=== PATIENT | male | born 1950 | race Caucasian/White ===

== ENCOUNTER 2017-07-26 07:34 | Day surgery (SDC) | payer MEDICARE, OTHER ==
[2017-07-26] MEDS ORDERED: SOD CHLORIDE 0.9% 1,000 ML IV (08:30)
[2017-07-26] MEDS ORDERED: CEFAZOLIN 2 GM/50 ML (PMX) 50 ML IVPB (08:30)
[2017-07-26] MEDS ORDERED: FENTAnyl 50 MCG/ML VIAL (10:51)
[2017-07-26] MEDS ORDERED: CEFAZOLIN 1 GM INJ (10:53)
[2017-07-26] MEDS: LIDOCAINE 2% (MDV) 20 ML INJ (11:08)
[2017-07-26] MEDS: BUPIVACAINE 0.5% (SDV) 30 ML INJ (11:08)
[2017-07-26] MEDS ORDERED: HYDROmorphONE (0.2 MG/ML) 10ML SYG IV ×3 (11:30)
[2017-07-26] MEDS ORDERED: DIPHENHYDRAMINE 50 MG INJ IV (11:30)
[2017-07-26] MEDS ORDERED: IBUPROFEN 800 MG TAB PO (11:30)
[2017-07-26] MEDS ORDERED: ONDANSETRON 4 MG INJ IV (11:30)
[2017-07-26] MEDS ORDERED: FENTAnyl 50 MCG/ML VIAL IV ×2 (11:30)
[2017-07-26] MEDS ORDERED: MEPERIDINE 25 MG INJ IV (11:30)
[2017-07-26] MEDS ORDERED: METOCLOPRAMIDE 10 MG INJ IV (11:30)
== END 2017-07-26 12:50 | disposition home or self-care (01) ==
LOC: SDS 07:34
DX: L72.0 Epidermal cyst (principal); E78.5 Hyperlipidemia, unspecified
CPT/HCPCS: 14000; 88307

== ENCOUNTER 2017-08-04 15:05 | Emergency (ER) | payer MEDICARE, OTHER | END 2017-08-04 17:27 | disposition home or self-care (01) | LOC: FTE 15:05 | DX: Z48.02 Encounter for removal of sutures (principal) | CPT/HCPCS: 99283 ==

== ENCOUNTER 2017-08-13 22:24 | Emergency (ER) | payer MEDICARE, OTHER | END 2017-08-14 00:17 | disposition home or self-care (01) | LOC: FTE 08-14 00:17 | DX: Z48.01 Encounter for change or removal of surgical wound dressing (principal) | CPT/HCPCS: 99284 ==